=== PATIENT | male | born 1975 | race Caucasian/White ===

== ENCOUNTER 2023-09-14 09:52 | Emergency (ER) | payer OTHER, BC, SELFPAY ==
[2023-09-14 09:54] VITALS: BP 142/87; PULSE 117; RESP 26; TEMP 36.5; O2SAT 99; BMI 34.0
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
[2023-09-14] MEDS: Diphth,Pertuss(Acell),Tet Vac 0.5 ML Vial IM (11:41)
[2023-09-14 11:53] VITALS: BP 140/79; PULSE 93; RESP 18; O2SAT 97
[2023-09-14 12:48] VITALS: BP 124/68; PULSE 87; RESP 16; TEMP 36.1; O2SAT 99
== END 2023-09-14 12:49 | disposition home or self-care (01) ==
PROVIDERS: Emergency Provider Emergency Medicine; Visit Provider Emergency Medicine
DX: S22.22XA Fracture of body of sternum, initial encounter for closed fracture (principal); Y92.410 Unspecified street and highway as the place of occurrence of the external cause; R26.2 Difficulty in walking, not elsewhere classified; R07.81 Pleurodynia; V49.40XA Driver injured in collision with unspecified motor vehicles in traffic accident, initial encounter; Z87.891 Personal history of nicotine dependence; Z23 Encounter for immunization
CPT/HCPCS: 70450; 71250; 90715; 99282

== ENCOUNTER → 2023-09-28 | Outpatient (CLI) | payer OTHER, BC, SELFPAY ==
--- NOTE | 2023-09-28 13:47 | RAD_ITS ---
STUDY: X-RAY - BILATERAL RIBS WITH CHEST REASON FOR EXAM: Male, 48 years old. Sternum and right anterior inferior rib pain TECHNIQUE - RIBS: 6 view(s) of the ribs. TECHNIQUE - CHEST: Single PA view of the chest. COMPARISON: None. FINDINGS - RIBS : Normal visualized ribs without a demonstrated fracture. FINDINGS - CHEST: Hyperinflation. The lungs are clear. There is no demonstrated pleural abnormality. Normal size heart. Normal mediastinum and edward. Normal visualized pulmonary arteries. Normal visualized aortic arch and descending thoracic aorta. Normal visualized thoracic spine. Normal visualized ribs, clavicles, and shoulders. There is no demonstrated abnormality of the visualized soft tissue structures of the upper abdomen. RAD/Ribs Ivan Min 4V w/PA Chest IMPRESSION: RIBS: Normal x-ray examination of the bilateral ribs. CHEST: Normal x-ray examination of the chest. Electronically Signed: Deon Brannon MD at 14:47 EDT ,
== END | disposition home or self-care (01) ==
LOC: MTRAD 13:47
PROVIDERS: Referring Provider Physician Assistant; Visit Provider Physician Assistant
DX: R52 Pain, unspecified (principal)
CPT/HCPCS: 71111